=== PATIENT | male | born 1945 | race Caucasian/White ===

== ENCOUNTER 2024-10-20 13:53 | Emergency (ER) | payer MEDICARE, OTHER ==
[~2024-10-20] VITALS: Ht 172.7 cm; Wt 90.7 kg
[2024-10-20] MEDS ORDERED: SODIUM CHLORIDE 0.9% 100 ML BAG IV ONE (14:25)
[2024-10-20] MEDS ORDERED: IOHEXOL 350 MG/ML 100 ML VIAL IV ONE (14:25)
[2024-10-20 15:10] LABS: BASO # 0.0 10*3/uL (0.0-0.1); BASO % 0.3 % (0.0-1.0); EOS # 0.1 10*3/uL (0.0-0.4); EOS % 0.6 % (1.0-4.0); MEAN CELL VOLUME 97.1 fl (80.0-94.0); MEAN CORPUSCULAR HGB 31.1 pg (27.0-31.0); MEAN PLATELET VOLUME 9.8 fl (9.6-12.3); MONO # 0.8 10*3/uL (0.1-1.0); MONO % 6.4 % (3.0-9.0); NEUT # 10.0 10*3/uL (2.3-7.9); NEUT % 82.0 % (47.0-73.0); NUCLEATED RED BLOOD CELL 0.0 % (0.0-0.0); NUCLEATED RED BLOOD CELL 0.0 10*3/uL (0.0-0.0); PLATELET COUNT AUTOMATED 196 10*3/uL (130-400); RED CELL DISTRI WIDTH 13.8 % (0-14.5)
[2024-10-20 15:34] LABS: BUN 11 mg/dl (9-23)
[2024-10-20] MEDS ORDERED: LEVOFLOXACIN 750 MG TAB PO ONE (17:45)
[2024-10-20] MEDS ORDERED: LEVOFLOXACIN750 M2 PO (17:52)
== END 2024-10-20 17:49 | disposition home or self-care (01) ==
LOC: ED 13:53
PROVIDERS: Emergency Medicine
DX: J18.9 Pneumonia, unspecified organism (principal); E78.5 Hyperlipidemia, unspecified; E11.9 Type 2 diabetes mellitus without complications; K21.9 Gastro-esophageal reflux disease without esophagitis; Z85.118 Personal history of other malignant neoplasm of bronchus and lung; Z91.018 Allergy to other foods